=== PATIENT | female | born 1975 | race Caucasian/White ===

== ENCOUNTER 2018-09-11 08:59 | Emergency (ER) | payer MEDICAID ==
[2018-09-11 09:04] VITALS: BP 147/95
[2018-09-11] MEDS ORDERED: FLUORESCEIN SODIUM 1 MG STRIP OP ONE (09:04)
[2018-09-11] MEDS ORDERED: PROPARACAINE 0.5% 15 ML OPHT DROP ONE (09:04)
--- NOTE | 2018-09-11 09:23 | EDPHY ---
H & P Stated Complaint: Left eye discomfort with tearing and blurry vision since Wednesday morning. Time Seen by Provider: 09/11/18 09:13 HPI/ROS: CHIEF COMPLAINT: Foreign body sensation left eye HISTORY OF PRESENT ILLNESS: The patient is a contact lens wearer who presents the ED with a several day history of a foreign body sensation her left eye. 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 She denies any additional upper respiratory symptoms. She has no additional acute complaints. She complains of moderate left eye pain with tearing. She reports that she has slightly blurry vision. She denies additional complaints. REVIEW OF SYSTEMS: A comprehensive 10 point review of systems is otherwise negative aside from elements mentioned in the history of present illness. Source: Patient Exam Limitations: No limitations - Personal History Current Tetanus Diphtheria and Acellular Pertussis (TDAP): Unsure - Medical/Surgical History Hx Asthma: No Hx Chronic Respiratory Disease: No Hx Diabetes: No Hx Cardiac Disease: No Hx Renal Disease: No Hx Cirrhosis: No Hx Alcoholism: No Hx HIV/AIDS: No Hx Splenectomy or Spleen Trauma: No Other PMH: Denies - Physical Exam Exam: Visual Acuity: noted from Nurse's notes. Pupils: equal round and reactive to light EOMI Skin: no proptosis, no periorbital erythema or swelling, no vesicles Conjunctivae: Left conjunctiva is mildly injected. No foreign body appreciated Cornea: exam with fluorescein shows small anterior corneal abrasion Anterior chamber: normal, no hyphema or hypopyon Constitutional: Initial Vital Signs Temperature (C) 36.6 C 09/11/18 09:00 Heart Rate 104 H 09/11/18 09:00 Respiratory Rate 18 09/11/18 09:00 Blood Pressure 147/95 H 09/11/18 09:00 O2 Sat (%) 98 09/11/18 09:00 O2 Delivery Mode Room Air Allergies/Adverse Reactions: latex Allergy (Verified 09/11/18 09:04) Sulfa (Sulfonamide Antibiotics) Allergy (Verified 09/11/18 09:04) Home Medications: Medication Instructions Recorded NK [No Known Home Meds] 09/11/18 Medical Decision Making ED Course/Re-evaluation: Patient presents the ED with a corneal abrasion. She will be started on Ocuflox eyedrops. 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 Departure - Departure Disposition: Home, Routine, Self-Care Clinical Impression: Corneal abrasion Qualifiers: Encounter type: initial encounter Laterality: left Qualified Code(s): S05.02XA - Injury of conjunctiva and corneal abrasion without foreign body, left eye, initial encounter Condition: Good Instructions: Corneal Abrasion (ED) Additional Instructions: 1. Take Ibuprofen or Motrin 600 mg by mouth three times a day. 2. Ocuflox eyedrops 1 drop to left eye 5 times a day for the next week. 3. Follow up with your regular eye doctor this week for recheck. Do not wear contact lenses until your regular eye doctor tells you it is okay. 4. Please return to the ED for markedly worsening symptoms or other concerns. 5. Take Ibuprofen or Motrin 600 mg by mouth three times a day.
== END 2018-09-11 09:28 | disposition home or self-care (01) ==
DX: S05.02XA Injury of conjunctiva and corneal abrasion without foreign body, left eye, initial encounter (principal)